=== PATIENT | male | born 1980 | race Caucasian/White ===

== ENCOUNTER 2020-08-24 16:32 | Outpatient (REF) | payer OTHER, SELFPAY ==
[2020-08-24 18:08] LABS: MANUAL DIFF FLAG NO
[2020-08-24 18:19] LABS: Basophils Absolute Auto 0.1 X10*3/uL (0.0-0.2); Basophils Percent Auto 1.3 % (0-2); Eosinophils Absolute Auto 0.2 X10*3/uL (0.0-0.4); Eosinophils Percent Auto 2.2 % (0-4); Hematocrit 40.9 % (42-52); Hemoglobin 13.2 g/dl (14.0-18.0); Imm Gran Abs Auto 0.07 X10*3/uL (0.00-0.03); Imm Gran Pct Auto 0.7 % (0.0-0.4); Lymphocytes Absolute Auto 2.3 X10*3/uL (1.2-4.9); Lymphocytes Percent Auto 23.7 % (20-40); Mean Corpuscular HGB Conc 32.3 g/dl (31.0-36.0); Mean Corpuscular Hemoglobin 29.4 pg (27.0-33.0); Mean Corpuscular Volume 91.1 fL (80-98); Mean Platelet Volume 10.5 fL (9.4-12.4); Monocytes Absolute Auto 0.8 X10*3/uL (0.1-1.2); Monocytes Percent Auto 7.9 % (2-11); Neutrophils Absolute Auto 6.3 X10*3/uL (2.0-8.3); Neutrophils Percent Auto 64.2 % (45-73); Platelet Count 243 X10*3/uL (160-400); Red Blood Count 4.49 X10*6/uL (4.60-5.80); Red Cell Distribution Width 12.9 % (11.0-16.0); White Blood Count 9.9 X10*3/uL (4.8-10.8)
[2020-08-24 18:34] LABS: Alanine Aminotransferase 20 U/L (0-40); Albumin Level 4.6 g/dL (3.5-5.0); Alkaline Phosphatase 70 U/L (39-117); Anion Gap 15 (12-20); Aspartate Amino Transferase 25 U/L (5-37); Bilirubin Total 0.5 mg/dL (0.0-1.0); Blood Urea Nitrogen 19 mg/dL (9-16); Calcium 10.1 mg/dL (8.4-10.2); Carbon Dioxide 28 mmol/L (22-29); Chloride 100 mmol/L (96-108); Cholesterol 175 mg/dL; Estimated Glomerular Filt Rate > 60; Glucose Random 118 mg/dL (60-115); Potassium 4.2 mmol/L (3.3-5.1); Sodium 139 mmol/L (135-145); Total Protein 7.5 g/dL (6.5-8.0)
== END 2020-08-24 16:33 | disposition home or self-care (01) ==
LOC: HO.LAB 16:32
PROVIDERS: PCP Internal Medicine; Visit Provider Internal Medicine
DX: R21 Rash and other nonspecific skin eruption (principal); E78.00 Pure hypercholesterolemia, unspecified; R00.2 Palpitations
CPT/HCPCS: 36415; 80053; 82465; 85025; 86140

== ENCOUNTER 2020-09-02 10:09 | Outpatient (REF) | payer OTHER, SELFPAY ==
[2020-09-02 10:35] LABS: COVID-19 Test Negative (Negative)
== END 2020-09-02 10:10 | disposition home or self-care (01) ==
LOC: HO.LAB 10:09
PROVIDERS: Visit Provider Internal Medicine
DX: Z20.822 Contact with and (suspected) exposure to COVID-19 (principal)
CPT/HCPCS: 36415; 87635; C9803

== ENCOUNTER 2022-04-18 17:06 | Outpatient (REF) | payer OTHER, SELFPAY ==
[2022-04-18 17:18] LABS: MANUAL DIFF FLAG NO
[2022-04-18 17:40] LABS: Basophils Absolute Auto 0.1 X10*3/uL (0.0-0.2); Basophils Percent Auto 0.8 % (0-2); Eosinophils Absolute Auto 0.1 X10*3/uL (0.0-0.4); Eosinophils Percent Auto 0.7 % (0-4); Hematocrit 46.3 % (42.0-52.0); Hemoglobin 14.7 g/dl (14.0-18.0); Imm Gran Abs Auto 0.04 X10*3/uL (0.00-0.03); Imm Gran Pct Auto 0.4 % (0.0-0.4); Lymphocytes Absolute Auto 2.1 X10*3/uL (1.2-4.9); Lymphocytes Percent Auto 21.2 % (20-40); Mean Corpuscular HGB Conc 31.7 g/dl (31.0-36.0); Mean Corpuscular Hemoglobin 27.8 pg (27.0-33.0); Mean Corpuscular Volume 87.7 fL (80.0-98.0); Mean Platelet Volume 10.3 fL (9.4-12.4); Monocytes Absolute Auto 0.5 X10*3/uL (0.1-1.2); Neutrophils Absolute Auto 7.2 x10*3/uL (2.0-8.3); Neutrophils Percent Auto 71.9 % (45-73); Platelet Count 314 X10*3/uL (160-400); Red Blood Count 5.28 X10*6/uL (4.60-5.80)
[2022-04-18 18:06] LABS: Amphetamine Screen Urine Not Detected (Not Detect); Barbiturates, Urine Not Detected (Not Detect); Benzodiazepines Screen Urine Not Detected (Not Detect); Cannabinoid Screen Urine Not Detected (Not Detect); Cocaine Screen Urine Not Detected (Not Detect); Fentanyl, urine POSITIVE (Not Detect); Opiate Screen Urine Not Detected (Not Detect); Phencyclidine Screen Urine Not Detected (Not Detect)
[2022-04-18 18:24] LABS: Alanine Aminotransferase 26 U/L (0-40); Albumin Level 4.7 g/dL (3.5-5.0); Alkaline Phosphatase 95 U/L (39-117); Anion Gap 15 (12-20); Aspartate Amino Transferase 27 U/L (5-37); Bilirubin Total 0.9 mg/dL (0.0-1.0); Blood Urea Nitrogen 11 mg/dL (9-16); C Reactive Protein 0.42 mg/dL (< or = 0.50); Calcium 10.1 mg/dL (8.4-10.2); Carbon Dioxide 27 mmol/L (22-29); Chloride 104 mmol/L (96-108); Estimated Glomerular Filt Rate > 60; Free T4 (Free Thyroxine) 1.09 ng/dL (0.71-1.85); Glucose Random 129 mg/dL (60-115); Potassium 4.3 mmol/L (3.3-5.1); Sodium 142 mmol/L (135-145); Total Protein 7.6 g/dL (6.5-8.0)
== END 2022-04-18 17:07 | disposition home or self-care (01) ==
LOC: HO.LAB 17:06
PROVIDERS: PCP Internal Medicine; Visit Provider Internal Medicine
DX: R00.0 Tachycardia, unspecified (principal); R25.1 Tremor, unspecified
CPT/HCPCS: 80053; 80307; 84439; 84443; 85025; 86140

== ENCOUNTER 2023-03-07 15:22 | Outpatient (REF) | payer OTHER, SELFPAY ==
[2023-03-07 15:40] LABS: MANUAL DIFF FLAG NO
[2023-03-07 16:02] LABS: Basophils Absolute Auto 0.1 X10*3/uL (0.0-0.2); Basophils Percent Auto 1.3 % (0-2); Eosinophils Absolute Auto 0.2 X10*3/uL (0.0-0.4); Eosinophils Percent Auto 2.8 % (0-4); Hematocrit 43.1 % (42.0-52.0); Hemoglobin 13.5 g/dl (14.0-18.0); Imm Gran Abs Auto 0.04 X10*3/uL (0.00-0.03); Imm Gran Pct Auto 0.7 % (0.0-0.4); Lymphocytes Absolute Auto 1.6 X10*3/uL (1.2-4.9); Lymphocytes Percent Auto 25.7 % (20-40); Mean Corpuscular HGB Conc 31.3 g/dl (31.0-36.0); Mean Corpuscular Hemoglobin 28.7 pg (27.0-33.0); Mean Corpuscular Volume 91.7 fL (80.0-98.0); Mean Platelet Volume 10.4 fL (9.4-12.4); Monocytes Absolute Auto 0.4 X10*3/uL (0.1-1.2); Monocytes Percent Auto 7.2 % (2-11); Neutrophils Absolute Auto 3.8 x10*3/uL (2.0-8.3); Neutrophils Percent Auto 62.3 % (45-73); Platelet Count 235 X10*3/uL (160-400); White Blood Count 6.1 X10*3/uL (4.8-10.8)
[2023-03-07 16:11] LABS: Estimated Average Glucose 114 mg/dL; Hemoglobin A1C 115.3037 umol/L; Hemoglobin A1c % 5.6 % (<6.0)
[2023-03-07 16:59] LABS: Alanine Aminotransferase 22 U/L (0-40); Albumin Level 4.3 g/dL (3.5-5.0); Alkaline Phosphatase 76 U/L (39-117); Anion Gap 10 (12-20); Aspartate Amino Transferase 25 U/L (5-37); Bilirubin Total 0.3 mg/dL (0.0-1.0); Blood Urea Nitrogen 11 mg/dL (9-16); Calcium 9.5 mg/dL (8.4-10.2); Carbon Dioxide 30 mmol/L (22-29); Chloride 105 mmol/L (96-108); Cholesterol 186 mg/dL (<200); Estimated Glomerular Filt Rate > 60; Glucose Random 145 mg/dL (60-115); Potassium 4.2 mmol/L (3.3-5.1); Sodium 141 mmol/L (135-145); Total Protein 7.4 g/dL (6.5-8.0)
[2023-03-07 17:13] LABS: Thyroid Stimulating Hormone 1.74 uIU/mL (0.32-4.0)
== END 2023-03-07 15:23 | disposition home or self-care (01) ==
LOC: HO.LAB 15:22
PROVIDERS: PCP Internal Medicine; Visit Provider Internal Medicine
DX: R21 Rash and other nonspecific skin eruption (principal); R63.5 Abnormal weight gain; Z83.3 Family history of diabetes mellitus
CPT/HCPCS: 36415; 80053; 82465; 83036; 84443; 85025

== ENCOUNTER 2025-02-26 15:14 | Outpatient (REF) | payer OTHER, SELFPAY ==
--- NOTE | ~2025-02-26 | XR_ITS ---
EXAMINATION: XR LUMBOSACRAL SPINE CLINICAL INFORMATION: M54.50 - Low back pain, unspecified COMPARISON: Lumbar spine 08/22/2018 TECHNIQUE: 6 views of the lumbar spine, inclusive of flexion and extension views, were obtained. FINDINGS: There is normal lumbar lordosis. The vertebral heights, alignment and disc heights are normal. There is no visible acute fracture, dislocation or subluxation seen. On oblique views there is no pars defect or listhesis. XR/XR lumbar spine 6V w bending IMPRESSION: Unremarkable lumbar spine exam. Electronically signed by: Aubrey Awad MD 02/27/2025 07:06 AM EDT
[2025-02-26 16:23] LABS: MANUAL DIFF FLAG NO
[2025-02-26 17:22] LABS: Hematocrit 41.1 % (42.0-52.0); Hemoglobin 12.8 g/dl (14.0-18.0); Imm Gran Abs Auto 0.05 X10*3/uL (0.00-0.03); Imm Gran Pct Auto 0.6 % (0.0-0.4); Lymphocytes Absolute Auto 2.0 X10*3/uL (1.2-4.9); Mean Corpuscular HGB Conc 31.1 g/dl (31.0-36.0); Mean Corpuscular Hemoglobin 29.0 pg (27.0-33.0); Mean Corpuscular Volume 93.0 fL (80.0-98.0); NRBC Abs Auto 0.000 X10*3/uL (0.0-0.012); NRBC Pct Auto 0.0 /100WBC (0.0-0.2); Platelet Count 230 X10*3/uL (160-400); Red Blood Count 4.42 X10*6/uL (4.60-5.80); White Blood Count 8.9 X10*3/uL (4.8-10.8)
[2025-02-26 18:06] LABS: Alanine Aminotransferase 28 U/L (0-40); Albumin Level 4.3 g/dL (3.5-5.0); Alkaline Phosphatase 78 U/L (39-117); Anion Gap 12 (12-20); Aspartate Amino Transferase 25 U/L (5-37); Blood Urea Nitrogen 12 mg/dL (9-16); Calcium 9.1 mg/dL (8.4-10.2); Carbon Dioxide 28 mmol/L (22-29); Chloride 107 mmol/L (96-108); Cholesterol 152 mg/dL (<200); Estimated Glomerular Filt Rate > 60; HDL Cholesterol 42 mg/dL (>40); Potassium 4.5 mmol/L (3.3-5.1); Sodium 142 mmol/L (135-145); Total Protein 7.2 g/dL (6.5-8.0); Triglycerides 117 mg/dL (<150)
[2025-02-27 04:21] LABS: Syphilis Screen Nonreactive (Nonreactive)
[2025-02-27 04:30] LABS: Hepatitis A Antibody IgM 0.19 Index (0-0.79); ~Hepatitis A Antibody IgM Nonreactive (Nonreactive)
[2025-02-27 04:54] LABS: HBS Num1 169.57 mIU/mL (0-7.99); HBc Num1 0.07 S/CO (0.00-0.79); HBsAGNum1 0.34 S/CO (0.00-0.99); HIV Num 1 0.09 S/CO (0.00-0.99); Hepatitis B Surface Antigen Negative (Negative); ~HepC Num1 0.06 S/CO (0.00-0.79); ~Hepatitis B Surface Antibody REACTIVE (Nonreactive); ~Hepatitis C Antibody Nonreactive (Nonreactive)
== END 2025-02-26 15:15 | disposition home or self-care (01) ==
LOC: HO.LAB 15:14
PROVIDERS: PCP Student in an Organized Health Care Education/Training Program; Visit Provider Student in an Organized Health Care Education/Training Program
DX: Z76.89 Persons encountering health services in other specified circumstances (principal); M54.50 Low back pain, unspecified; G89.29 Other chronic pain; F41.9 Anxiety disorder, unspecified; L40.9 Psoriasis, unspecified; F11.91 Opioid use, unspecified, in remission; Z79.899 Other long term (current) drug therapy
CPT/HCPCS: 36415; 72114; 80053; 80061; 82306; 83036; 84443; 85025; 86704; 86706; 86709; 86780; 86803; 87340; 87389; 96127; 99202

== ENCOUNTER 2025-02-26 15:14 | Outpatient (AMB) | payer OTHER, SELFPAY ==
--- NOTE | 2025-02-26 14:34 | A.OFFPC_ITS ---
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 Cashier Payments Received Required: No Accompanied by: Self / Same As Patient Allergies No Known Allergies Allergy (Verified 02/26/25 14:34) Medication List - Last Reconciled 02/26/25 by Feliberto Andrew MD fluoxetine 10 mg PO DAILY hydroxyzine pamoate 25 mg PO BID methadone 40 mg PO DAILY Tobacco use date assessed: 02/26/25 Dental Screening Dental Screen Date: 02/26/25 Did you have a dental visit in the last 12 months?: Yes Did you have a dental problem in the last 6 months where you did not have access to dental care?: No Was dental information given to patient?: Patient has dentist HPI HPI Comments History of Present Illness Details The patient is a 45-year-old male presenting to [facility] and for management of multiple chronic conditions including anxiety, depression, PTSD, back pain, and a skin condition. The patient reports a history of anxiety, depression, and PTSD. He was previously prescribed fluoxetine 10 mg and hydroxyzine 25 mg twice daily but has not taken them for at least five months due to running out of refills. His anxiety contributes to his inability to work, as he feels judged by others. He sees a psychiatrist at his methadone clinic but notes she is very busy. The patient complains of severe lower to middle back pain, which prevents him from sleeping flat and limits his ability to stand or walk for long distances. He also experiences josue splints when he walks for a certain amount of time. He has had x-rays of his back in the past but was never referred to a campaign marketing specialist, as his previous doctor deemed it unnecessary. He has a skin condition with patches on his head, in his ears, and on his chest, which involves itching and peeling. His prior physician diagnosed it as eczema, though the patient believes it is psoriasis. The patient also reports chronic migraine headaches. Past medical history includes a significant right knee injury from a fall, resulting in a dislocated kneecap, a torn ACL, and a fractured tibial plateau. He reports a history of opiate use but has been clean for about seven years and is currently on methadone 40 mg daily. He quit smoking cigarettes 12 years ago a nd denies current use of alcohol or other illicit drugs. He has environmental allergies to dust and pollen. Medical History: - Anxiety - Depression - PTSD - Chronic low back pain - Chronic migraine headaches - Psoriasis/eczema - History of opiate use disorder, in rem ission for 7 years on methadone maintenance - History of right knee injury with disl ocated kneecap, torn ACL, and fractured tibial plateau - Environmental allergies to dust and po llen Surgical History: - Right knee surgery status post fall wi th patellar dislocation, ACL tear, and tibial plateau fracture, which was reset - Root canal Medications: - Methadone 40 mg daily for opioid use d isorder - Fluoxetine 10 mg for anxiety (not take n in over 5 months) - Hydroxyzine 25 mg twice daily for anxi ety (not taken in over 5 months) Family History: - Sister with stage 4 lung cancer with b rain metastasis - Paternal grandfather had kidney diseas e and prostate cancer - Paternal aunt had diabetes, prostate c ancer, and kidney disease - Mother has mental health issues - Paternal side of the family has a hist ory of heart disease, cancer, and diabetes Social History: - Tobacco: Quit smoking cigarettes 12 ye ars ago. - Alcohol: Denies use. - Illicit Drugs: Denies use of marijuana , cocaine, and heroin. - He has a history of opiate use and has been in recovery for 7 years on methadone maintenance. - Employment: Currently unemployed, limi tin by chronic pain and anxiety. - He is in the process of applying for [employer]. - Housing: Reports being homeless, bounc ing between his grandmother's house, a t ent, and hotels when he has money. [facility] Medical History (Updated 02/26/25 @ 15:57 by Feliberto Andrew MD) Opioid use disorder in remission Psoriasis Anxiety Low back pain Social History Housing: Other Housing Other:: does not have a steady place to live Patient Tobacco Use Status: Former Tobacco user Years Smoked: 10 years e-Cigarette/Vaping Use: Never Used service: No Current occupational status: unemployed Hearing needs: No Vision needs: No Questionnaire PHQ-9 Over the last 2 weeks, how often have you been bothered by any of the following problems? 1. Little interest or pleasure in doing things: not at all 2. Feeling down, depressed, or hopeless: not at all 3. Trouble falling or staying asleep, or sleeping too much: not at all 4. Feeling tired or having little energy: not at all 5. Poor appetite or overeating: not at all 6. Feeling bad about yourself - or that you are a failure or have let yourself or your family down: not at all 7. Trouble concentrating on things, such as reading the newspaper or watching television: not at all 8. Moving or speaking so slowly that other people could have noticed. Or the opposite - being so fidgety or restless that you have been moving around a lot more than usual: not at all 9. Thoughts that you would be better off or of hurting yourself in some way: not at all Total score: 0 Depression Screening Interpretation: Negative Depression Screening Done: Yes 80398 - PHQ-9 Billing: Yes Source: Developed by Drs. Mayo Pennington, Oxana Islas, Fredy Rodriguez and colleagues, with an educational carlos from [employer]. Thrive Questionnaire I am a: Patient What is your living situation today?: I do not have a steady places to live Within the past 12 months, did the food you bought not last and you didn't have the money to get more?: Sometimes True Within the past 12 months, did you worry whether your food would run out before you got money to buy more?: Sometimes True Do you have trouble paying for medicines?: No Do you have trouble getting transportation to medical appointments?: Yes Do you have trouble paying your heating and electricity bill?: No Do you have trouble taking care of your child, family member or friend?: Yes Do you have trouble with day-to-day activities such as bathing, preparing meals, shopping, managing finances, etc.?: No Are you currently unemployed and looking for a job?: Yes Are you interested in more education?: No Please select the resources that you would like help with: Housing/Halfway, Transportation, Daily support and Job search/training THRIVE Score: 4 AUDIT C Alcohol Use Questionnaire (AUDIT-C) 1. How often do you have a drink containing alcohol?: Never 3. How often do you have six or more drinks on one occasion?: Never Total Score: 0 Score Reviewed/Action Taken: Yes NOMAN-7 AMB Questionnaire NOMAN-7 Date NOMAN - 7 assessed: 02/26/25 Feeling nervous, anxious, or on edge: 1 = Several days Not being able to stop or control worryin = More than half the days Worrying too much about different things: 2 = More than half the days Trouble relaxin = More than half the days Being so restless that it is hard to sit still: 1 = Several days Becoming easily annoyed or irritable: 0 = Not at all Feeling afraid as if something awful might happen: 1 = Several days Total NOMAN-7 score (0-4 normal; 5-9 mild; 10-14 moderate; 15-21 severe): 9 Source: Developed by Drs. Mayo Pennington, Oxana Islas, Fredy Rodriguez and colleagues, with an educational carlos from [employer]. Review of Systems Narrative - Psychological: Reports anxiety, depression, and PTSD. - Neurological: Reports chronic migraine headaches. - Musculoskeletal: Reports severe lower to middle back pain that makes it difficult to sleep flat. - Reports pain limits ability to stand and walk long distances. - Reports josue splints with walking. - Reports pain in the right knee on full extension. - Dermatologic: Reports an itchy, peeling rash on his head, ears, and chest. - Allergic: Reports allergies to dust and pollen with seasonal changes. All systems reviewed & are unremarkable except as reviewed in HPI and above Physical exam (Primary Care) Vital Signs: Last Vital Signs Temp 97.5 F 02/26/25 15:29 Pulse 116 H 02/26/25 15:29 Resp 20 02/26/25 15:29 BP 124/80 02/26/25 15:29 Pulse Ox 94 02/26/25 15:29 Oxygen Delivery Method Room Air 02/26/25 15:29 BMI result Body Mass Index 47.4 Tobacco/Smoking Status: Tobacco use Status Tobacco use date assessed 02/26/25 02/26/25 14:34 Patient Tobacco Use Status Former Tobacco user 02/26/25 15:31 e-Cigarette/Vaping Use Never Used 02/26/25 15:31 Depression Screening Interpretation: Negative Narrative General: +Alert and oriented, Well nourished, No acute distress. Eye: Pupils are equal, round and reactive to light, Intact accommodation, Extraocular movements are intact, Normal conjunctiva, Vision unchanged. HENT: Normocephalic, Atraumatic, Tympanic membranes are clear, Normal hearing, Oral mucosa is moist, No pharyngeal erythema, Ear canals patent. Respiratory: Lungs CTA bilaterally, No wheeze, Respirations are non-labored. Cardiovascular: Regular rate, Regular rhythm, S1 auscultated, S2 auscultated, No murmur, Good pulses equal in all extremities, Normal peripheral perfusion, No edema. Gastrointestinal: Soft, Non-tender, Non-distended, Normal bowel sounds, No organomegaly. Musculoskeletal: Limited range of motion in the right knee, Pain on full extension, Normal strength, No swelling, No deformity, Pain in lower back, Normal gait with noted discomfort after walking certain distances. Integumentary: Warm, Dry, [place], Intact, Patches of eczema/psoriasis on the head and ears, Peeling skin noted. Neurologic: Alert, Oriented, Normal sensory, Normal motor function, No focal defects, Cranial Nerves II-XII are grossly intact, Normal deep tendon reflexes. Psychiatric: Cooperative, Appropriate mood & affect, Normal judgment, History of anxiety, depression, and PTSD. Coding Level of Care Code New Pt Level 4 (94472) Complex EM visit Add On G2211 Diagnoses Chronic bilateral low back pain without sciatica M54.50; G89.29 Chronicity: chronic Back pain laterality: bilateral Sciatica presence: without sciatica Anxiety F41.9 Psoriasis L40.9 Opioid use disorder in remission F11.91 Additional Codes PHQ-9 - 27990 - PHQ-9 Billing: Yes ([id number]) Assessment & Plan Assessment & Plan (1) Low back pain: Comment: - The patient experiences severe, activity-limiting pain. - An order for lumbar spine X-rays and a referral to physical therapy will be placed. - Paperwork for his Social Security application related to his back pain and anxiety has been completed. Code(s): M54.50 - Low back pain, unspecified Category: Medical Qualifiers: Chronicity: chronic Back pain laterality: bilateral Sciatica presence: without sciatica Qualified Code(s): M54.50 - Low back pain, unspecified; G89.29 - Other chronic pain (2) Anxiety: Comment: - The patient has a significant mental health history and has not taken his pre scribed anxiolytics in over 5 months. - Fluoxetine will be discontinued. - He will be started on buspirone twice daily for anxiety. - A prescription for hydroxyzine PRN will be sent to his pharmacy. - He was counseled that buspirone does not interact with his methadone. - We will consider a psychiatry referral. Code(s): F41.9 - Anxiety disorder, unspecified Category: Medical (3) Psoriasis: Comment: - The patient has a skin rash suggestive of psoriasis rather than eczema. - His condition will be monitored, advised topical cream Code(s): L40.9 - Psoriasis, unspecified Category: Medical (4) Opioid use disorder in remission: Comment: - The patient is stable on methadone 40 mg daily from his clinic and has been in recovery for 7 years. - He was advised to inform his clinic of the new buspirone prescription. Code(s): F11.91 - Opioid use, unspecified, in remission Category: Medical Plan: Health Maintenance: - Ordered a comprehensive set of blood work. - Advised the patient to start looking for work and become more occupied. Patient was informed and verbally consented to the use of an ambient scribe for clinic note documentation during this visit. Plan I introduced myself as this was our first encounter. We discussed his significant history of anxiety, for which he has not been medicated in several months. I explained that we would stop the fluoxetine and start buspirone, a medication that acts on the serotonin system. I counseled him that he may feel a little 'funny' for the first few days but that he should continue the medication, and reassured him it does not interact with his methadone. Regarding his chronic back pain, I informed him we would proceed with getting X-rays and a physical therapy referral. I completed his Social Security paperwork for a disability period of up to 12 months, but I also encouraged him to start looking for work and to get occupied. I scheduled him for a follow-up visit in four weeks to assess his response to the new medication and review the results of his blood work and imaging. Orders: Orders PT Evaluation and Treatment Today M54.50 - Low back pain, unspecified Complete Blood Count Auto Diff Today Z76.89 - Persons encountering health services in other specified circumstances Comprehensive Met. Panel Today Z76.89 - Persons encountering health services in other specified circumstances Hemoglobin A1c Today Z76.89 - Persons encountering health services in other specified circumstances Hepatitis A,B,C Profile Today Z76.89 - Persons encountering health services in other specified circumstances Lipid Panel Today Z76.89 - Persons encountering health services in other specified circumstances Syphilis Screen Today Z76.89 - Persons encountering health services in other specified circumstances TSH reflex Free T4 Today Z76.89 - Persons encountering health services in other specified circumstances Vitamin D 25-OH Total Today Z76.89 - Persons encountering health services in other specified circumstances XR lumbar spine 6V w bending Today M54.50 - Low back pain, unspecified HIV Ab/Ag Today Z76.89 - Persons encountering health services in other specified circumstances Medications: New hydroxyzine pamoate 25 mg PO BID PRN 60 caps 5RF anxiety 30 days buspirone 5 mg PO BID 60 tabs 0RF 30 days Patient Instructions: - Go to the hospital to get your blood work and back X-ray done. - You do not need to take any paperwork for your lab work or X-ray; the orders are in the system. - Start taking Buspar (buspirone) in the morning and evening. - You may feel a little funny for the first few days on the new medication, but keep taking it as the feeling should get better. - Your prescription for hydroxyzine will be sent to your pharmacy for you to take as needed for anxiety. - The physical therapy office will call you to schedule an appointment. - Be sure to tell your methadone clinic that you were prescribed buspirone. - Please come back for a follow-up visit in four weeks.
[2025-02-26 15:29] VITALS: BP 124/80; PULSE 116; RESP 20; TEMP 36.4; O2SAT 94; BMI 47.4
== END 2025-02-26 15:58 | disposition home or self-care (01) ==
LOC: HO.HMCHD 15:15
PROVIDERS: PCP Student in an Organized Health Care Education/Training Program; Visit Provider Student in an Organized Health Care Education/Training Program
DX: M54.50 Low back pain, unspecified (principal); G89.29 Other chronic pain; F41.9 Anxiety disorder, unspecified; L40.9 Psoriasis, unspecified; F11.91 Opioid use, unspecified, in remission

== ENCOUNTER → 2025-02-26 16:20 | Outpatient (BNV) | payer OTHER, SELFPAY | PROVIDERS: PCP Student in an Organized Health Care Education/Training Program; Visit Provider Radiology Diagnostic Radiology | DX: M54.50 Low back pain, unspecified (principal) | CPT/HCPCS: 72114 ==